=== PATIENT | male | born 2000 | race Two or more races ===

== ENCOUNTER 2021-06-30 14:22 | Emergency (ER) | payer OTHER ==
[~2021-06-30] VITALS: Ht 182.9 cm; Wt 94.1 kg
[2021-06-30 18:15] VITALS: BP 140/73
== END 2021-06-30 18:30 | disposition home or self-care (01) ==
LOC: M ED 14:22
DX: S93.402A Sprain of unspecified ligament of left ankle, initial encounter (principal); W01.0XXA Fall on same level from slipping, tripping and stumbling without subsequent striking against object, initial encounter; Y92.9 Unspecified place or not applicable; Y93.9 Activity, unspecified; Y99.0 Civilian activity done for income or pay